=== PATIENT | female | born 1945 | race Native Hawaiian/Other Pacific Islander ===

== ENCOUNTER 2021-03-16 12:15 | Outpatient (CLI) | payer OTHER | END 2021-03-16 19:36 | disposition home or self-care (01) | LOC: US 12:15 | PROVIDERS: ATTEND Internal Medicine | DX: R10.11 Right upper quadrant pain (principal); I73.9 Peripheral vascular disease, unspecified; M79.661 Pain in right lower leg ==

== ENCOUNTER 2021-04-15 13:40 | Outpatient (CLI) | payer OTHER | END 2021-04-15 21:15 | disposition home or self-care (01) | LOC: RAD 13:40 | PROVIDERS: ATTEND Orthopaedic Surgery Adult Reconstructive Orthopaedic Surgery | DX: M25.561 Pain in right knee (principal) ==